=== PATIENT | male | born 1975 | race Caucasian/White ===

== ENCOUNTER → 2017-03-13 | Outpatient (CLI) | payer OTHER | END | disposition home or self-care (01) | LOC: CFH 13:24 | PROVIDERS: ATTEND Nurse Practitioner Family | DX: I80.01 Phlebitis and thrombophlebitis of superficial vessels of right lower extremity (principal) ==

== ENCOUNTER 2017-03-23 20:43 | Emergency (ER) | payer OTHER ==
[~2017-03-23] VITALS: Ht 185.4 cm; Wt 97.1 kg
[2017-03-23] MEDS ORDERED: ENOXAPARIN 100 MG/ML SQ STA (22:50)
[2017-03-23 23:23] VITALS: BP 118/75
== END 2017-03-23 23:26 | disposition home or self-care (01) ==
LOC: ED 23:14
DX: I82.812 Embolism and thrombosis of superficial veins of left lower extremity (principal)
CPT/HCPCS: 99284

== ENCOUNTER 2017-04-07 21:11 | Emergency (ER) | payer OTHER ==
[~2017-04-07] VITALS: Ht 185.4 cm; Wt 98.1 kg
[2017-04-07 22:45] VITALS: BP 128/70
== END 2017-04-07 22:47 | disposition home or self-care (01) ==
LOC: ED 22:41
DX: I80.01 Phlebitis and thrombophlebitis of superficial vessels of right lower extremity (principal); Z86.718 Personal history of other venous thrombosis and embolism
CPT/HCPCS: 99284

== ENCOUNTER 2017-07-30 19:26 | Emergency (ER) | payer BC, OTHER ==
[~2017-07-30] VITALS: Ht 185.4 cm; Wt 102.0 kg
[2017-07-30 20:05] LABS: HEMATOCRIT 46.6 % (39.2-51.8); HEMOGLOBIN 15.5 g/dL (13.7-18.0); WHITE BLOOD COUNT 8.6 x10^3/uL (3.4-10)
[2017-07-30 20:07] LABS: ASPARTATE AMINO TRANSFERASE 26 U/L (15-37); BLOOD UREA NITROGEN 19 mg/dL (7-18)
[2017-07-30] MEDS ORDERED: OMNIPAQUE 350 MG/ML, 100ML BOTTLE ONE (20:38)
[2017-07-30] MEDS ORDERED: KETOROLAC 30 MG/1 ML ONE (21:40)
[2017-07-30] MEDS ORDERED: HYDROcodone/APAP 5/325 TABLET ONE (21:43)
[2017-07-30] MEDS ORDERED: KETOROLAC 60 MG/2 ML IVPush ONE (22:00)
[2017-07-30] MEDS ORDERED: HYDROcodone/APAP 5/325 TABLET PO ONE (22:00)
[2017-07-30 22:19] VITALS: BP 132/64
[2017-07-30] MEDS ORDERED: MORPHINE SULFATE 4 MG/ML, 1ML IVPush PRN (22:30)
[2017-07-30] MEDS ORDERED: ONDANSETRON 2MG/ML, 2ML IVPush ONE (22:30)
== END 2017-07-30 22:21 | disposition home or self-care (01) ==
LOC: ED 21:23
DX: I88.0 Nonspecific mesenteric lymphadenitis (principal)
CPT/HCPCS: 36415; 74177; 80053; 81003; 83690; 85025; 96374; 99285; J1885; Q9967